=== PATIENT | male | born 1970 | race Caucasian/White ===

== ENCOUNTER → 2023-03-21 14:32 | Outpatient (BNVA) | payer BC, SELFPAY | PROVIDERS: Referring Provider Family Medicine; Visit Provider Internal Medicine | DX: M25.50 Pain in unspecified joint (principal); M46.1 Sacroiliitis, not elsewhere classified; R70.0 Elevated erythrocyte sedimentation rate; R25.1 Tremor, unspecified; R19.7 Diarrhea, unspecified; R53.1 Weakness; L40.9 Psoriasis, unspecified; M25.572 Pain in left ankle and joints of left foot; M25.571 Pain in right ankle and joints of right foot | CPT/HCPCS: 36415; 72202; 73120; 73620; 80053; 81003; 82550; 82607; 82728; 83516; 83540; 84100; 84403; 84443; 85025; 85651; 86140; 86160; 86162; 86200; 86235; 86255; 86376; 86431; 86618; 86666; 86704; 86757; 86803; 87340 ==

== ENCOUNTER → 2024-09-19 11:44 | Outpatient (BNVA) | payer BC, SELFPAY | PROVIDERS: PCP Nurse Practitioner Family; Visit Provider Psychiatry & Neurology Neurology | DX: M47.812 Spondylosis without myelopathy or radiculopathy, cervical region (principal); R25.1 Tremor, unspecified; M79.10 Myalgia, unspecified site; M62.81 Muscle weakness (generalized); E11.9 Type 2 diabetes mellitus without complications; M79.601 Pain in right arm; M79.602 Pain in left arm; M79.604 Pain in right leg; M79.605 Pain in left leg; M54.2 Cervicalgia; R53.1 Weakness | CPT/HCPCS: 36415; 82085; 82306; 82310; 82550; 82607; 83520; 83735; 83921; 84155; 84165; 86334 ==

== ENCOUNTER 2024-10-15 09:05 | Outpatient (CLI) | payer BC, SELFPAY ==
--- NOTE | 2024-10-15 09:30 | MR_ITS ---
WS: [id number] MRI CERVICAL SPINE with and without contrast HISTORY: Bilateral upper extremity pain, no injury. COMPARISON: None available. Technique: Multiplanar, multisequence noncontrast imaging of the cervical spine. Post contrast MultiHance 20 mL. Straightening of the normal cervical lordosis. Mild disc space narrowing and desiccation. Signal within the cervical cord is normal. Visualized posterior fossa is unremarkable. Craniocervical junction, C1 and C2 relationship, odontoid process and soft tissues are normal. C2-C3: Normal. C3-C4: Normal. C4-C5: Minimal osteophytic ridging. Mild encroachment upon the ventral CSF but no high-grade stenosis. Mild facet arthritis. C5-C6: Diffuse annular disc bulging and mild osteophytic ridging. Effacement of the ventral CSF. Moderate to severe central and bilateral foraminal stenosis. Foraminal stenosis due to disc osteophyte disease and does appear to be slightly greater on the RIGHT. C6-C7: Mild annular disc bulging mild facet arthritis. Very minimal central canal stenosis and LEFT foraminal stenosis. C7-T1: Diffuse annular disc bulging with a central disc protrusion. Mild osteophytic ridging. Mild central and LEFT foraminal stenosis. Mild facet arthritis. Paraspinal soft tissue are normal. No discitis or osteomyelitis. No facet joint enhancement. No enhancing masses. MR/MR cervical spine wo/w [id number] IMPRESSION: 1. No signal abnormality within the cord. 2. 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 3. C6-7: Mild central and LEFT foraminal stenosis. 4. C7-T1: Mild central and LEFT foraminal stenosis. 5. No discitis or osteomyelitis. 6. No enhancement in the cervical cord. No myelomalacia.
[2024-10-15] MEDS: gadobenate dimeglumine 20 mL vial IV (10:23)
== END 2024-10-15 09:06 | disposition home or self-care (01) ==
LOC: RAD 09:06
PROVIDERS: Visit Provider Psychiatry & Neurology Neurology
DX: M47.812 Spondylosis without myelopathy or radiculopathy, cervical region (principal); M48.02 Spinal stenosis, cervical region; M25.78 Osteophyte, vertebrae; M50.323 Other cervical disc degeneration at C6-C7 level; M48.03 Spinal stenosis, cervicothoracic region; M50.321 Other cervical disc degeneration at C4-C5 level; M47.892 Other spondylosis, cervical region; M50.322 Other cervical disc degeneration at C5-C6 level; M50.33 Other cervical disc degeneration, cervicothoracic region; M50.23 Other cervical disc displacement, cervicothoracic region; M47.893 Other spondylosis, cervicothoracic region
CPT/HCPCS: 72156

== ENCOUNTER → 2024-11-12 09:06 | Outpatient (BNVA) | payer BC, SELFPAY | PROVIDERS: Visit Provider Student in an Organized Health Care Education/Training Program | DX: G56.03 Carpal tunnel syndrome, bilateral upper limbs (principal) | CPT/HCPCS: 73110 ==

== ENCOUNTER 2025-04-04 08:27 | Day surgery (SDC) | payer BC, SELFPAY ==
[2025-04-04] VITALS (8 sets, daily range): BP systolic 109–123; BP diastolic 77–91; PULSE 71–88; RESP 10–17; TEMP 36.3–36.7; O2SAT 93–98; BMI 32.6
[2025-04-04] MEDS: acetaminophen 1,000 MG/100 ML PIGGYBACK 400 MG IV (09:56)
--- NOTE | 2025-04-04 10:05 | W.PM.OPSFHP ---
Same Day Surgery H&P Indication for Procedure/HPI DATE OF PROCEDURE: April 04, 2025 CHIEF COMPLAINT/INDICATIONFOR SURGICAL PROCEDURE: Left carpal tunnel syndrome PREOP DIAGNOSIS: Left carpal tunnel syndrome PLANNED PROCEDURE: Operation Date: 04/04/25 11:00 Proposed Procedures p LEFT Carpal Tunnel Release(Left) - Ino Restrepo, DO Medications/Allergies* Home Medications ?Medication ?Instructions ?Recorded ?Confirmed ?Type levothyroxine 112 mcg tablet 112 mcg PO DAILY 01/21/22 04/04/25 History (Synthroid) pantoprazole 40 mg tablet,delayed 40 mg PO DAILY 01/21/22 04/04/25 History release empagliflozin 10 mg tablet 10 mg PO DAILY 09/19/24 04/04/25 History (Jardiance) lisinopril 40 mg tablet 40 mg PO DAILY 09/19/24 04/04/25 History lovastatin 20 mg tablet 20 mg PO DAILY 09/19/24 04/03/25 History propranolol 20 mg tablet 20 mg PO BID 09/19/24 04/04/25 History sucralfate 1 gram tablet (Carafate) 1 g PO BID 09/19/24 04/04/25 History upadacitinib 15 mg tablet,extended 15 mg PO DAILY 09/19/24 04/04/25 History release 24 hr (Rinvoq) Allergies/Adverse Reactions Allergy/AdvReac Type Severity Reaction Status Date / Time meloxicam Allergy ALGY-Hives Verified 04/04/25 09:35 Pertinent History/Comorbid Conditions* Social History Smoking and tobacco/nicotine status: current every day tobacco/nicotine user Pertinent Exam Findings alert, oriented x 3, operative site marked and procedure specific exam findings Examination today positive Tinel's over the left carpal tunnel with median nerve paresthesias. Please refer to detailed orthopedic examination on 11/12/2024 listed below: Bilateral upper extremity Exam: -Normal C-spine ROM, No pain. -Negative Spurling's -Negative Tinel's @ shoulder, Normal ROM -Negative Tinel's @ elbow, Normal ROM -Positive median compression test bilateral wrists over the carpal tunnel -Positive Tinel's, over the carpal tunnel -Positive Phalen's -Thenar weakness - No appreciable thenar atrophy noted. -No Intrinsic atrophy or weakness noted bilaterally. Recommendations Risks and benefits of procedure reviewed and Patient/family agree to proceed Surgery/Procedure today Other Plans: Plan to proceed to the OR today for left carpal tunnel release. Patient understands Anzemet's procedure the risk benefits complication alternatives surgical nonsurgical treatment options. Understanding risk of surgery patient like to proceed with surgical intervention for left carpal tunnel release all questions answered at this time. Coding Level of Care Code Acute Code for Chg Fwd
[2025-04-04 10:32] LABS: Anion Gap 16.0 (5-19); Blood Urea Nitrogen 18 mg/dL (6-20); Calcium 8.8 mg/dL (8.5-10.5); Carbon Dioxide 26 mmol/L (22-29); Chloride 98 mmol/L (98-107); Creatinine Clr Calc Pharmacy 120.9070; Glucose 89 mg/dL (65-115); Osmolality Calculated 283 mOsm/kg (285-295); Potassium 4.0 mmol/L (3.5-5.1); Sodium 136 mmol/L (136-145)
--- NOTE | 2025-04-04 10:47 | ANES.PREANE2 ---
Pre-Anesthetic Assessment Height/Weight: Height 5 ft 8 in Weight 215 lb Temp Pulse Resp BP Pulse Ox O2 Del Method 97.9 F 88 17 114/91 98 Room Air 04/04/25 09:45 04/04/25 09:45 04/04/25 09:45 04/04/25 09:45 04/04/25 09:45 04/04/25 09:45 Preop Diagnosis: Left carpal tunnel syndrome Operation Date: 04/04/25 11:00 Proposed Procedures p LEFT Carpal Tunnel Release(Left) - Ino Restrepo, DO Was Beta Alicja taken within 24 hours: N/A Was Clonidine taken within 24 hours: N/A Last intake: Intake Last Liquid Date 04/03/25 Last Liquid Time 19:00 Last Solid Date 04/03/25 Last Solid Time 19:00 Social No alcohol and No tobacco Exam alert, oriented x 3, clear to auscultation bilaterally and regular rate & rhythm Airway Submandibular: within normal limits Cervical ROM: within normal limits Mallampati: Class III Comments: Comments: Very poor dentition, denies any loose teeth Anesthetic Plan ASA status: 3 Anesthesia: MAC Other: No prior issues with anesthesia NPO since yesterday evening History of hypertension, on lisinopril and propranolol GERD, controlled with Protonix Hypothyroidism on Synthroid Plan for MAC anesthesia with local via surgeon Medications/Allergies Home Medications ?Medication ?Instructions ?Recorded ?Confirmed ?Last Taken ?Type levothyroxine 112 mcg tablet 112 mcg PO DAILY 01/21/22 04/04/25 04/04/25 History (Synthroid) pantoprazole 40 mg tablet,delayed 40 mg PO DAILY 01/21/22 04/04/25 04/04/25 History release empagliflozin 10 mg tablet 10 mg PO DAILY 09/19/24 04/04/25 04/03/25 History (Jardiance) gabapentin 300 mg capsule 600 mg (2 x 300 mg) PO TID 30 days 09/19/24 04/04/25 04/03/25 Rx #180 caps lisinopril 40 mg tablet 40 mg PO DAILY 09/19/24 04/04/25 04/03/25 History lovastatin 20 mg tablet 20 mg PO DAILY 09/19/24 04/03/25 04/03/25 History propranolol 20 mg tablet 20 mg PO BID 09/19/24 04/04/25 04/04/25 History sucralfate 1 gram tablet (Carafate) 1 g PO BID 09/19/24 04/04/25 04/03/25 History upadacitinib 15 mg tablet,extended 15 mg PO DAILY 09/19/24 04/04/25 04/03/25 History release 24 hr (Rinvoq) cholecalciferol (vitamin D3) 1,250 50,000 unit PO .Q7 #12 caps 09/20/24 04/04/25 03/20/25 Rx mcg (50,000 unit) capsule Allergies Allergy/AdvReac Type Severity Reaction Status Date / Time meloxicam Allergy ALGY-Hives Verified 04/04/25 09:35 Current Medications Generic Name Dose Route Start Last Admin Trade Name Danialq PRN Reason Stop Dose Admin Sodium Chloride 1,000 mls @ 30 mls/hr 04/04/25 09:30 04/04/25 09:56 Sodium Chloride 0.9% IV 04/05/25 09:29 30 mls/hr .Q24H VIOLETTE Administration PFSH Anesthesia Social History Smoking and tobacco/nicotine status: current every day tobacco/nicotine user Data Anesthesia 04/04/25 09:53 BMP 04/04/25 09:53 Sodium 136 Potassium 4.0 Chloride 98 Carbon Dioxide 26 BUN 18 Creatinine 0.8 Glucose 89 Calcium 8.8
[2025-04-04] MEDS: midazolam 1 mg/mL INJ 2 mL 2 MG IVP (11:21)
[2025-04-04] MEDS: ceFAZolin 2,000 MG in sodium chloride 0.9% (plus) 50 ML 100 MG IV (11:45)
[2025-04-04] MEDS: ROPivacaine 0.5% SDV 30 mL 150 MG INJECTION (12:00)
[2025-04-04] MEDS: lidocaine-epi 1% 20 mL INJ INJECTION (12:00)
--- NOTE | 2025-04-04 12:06 | W.PM.BPON ---
Date of Procedure: 04/04/2025 Surgeon: Ino Restrepo DO Commissioning Engineer(s): None Procedure(s) performed: Left carpal tunnel release Findings of the procedure(s): Underwent procedure as planned without issues or complications taken recovery in stable condition Estimated blood loss: 2 mL Specimen(s) removed: None Post-operative diagnosis: Left carpal tunnel syndrome
--- NOTE | 2025-04-04 12:07 | P.OP_ITS ---
Operative Report Date of procedure: April 04, 2025 Surgeon: Ino Restrepo DO Procedure: Preop Diagnosis: Left Carpal Tunnel Syndrome Post-op diagnosis: Same Procedure done: 1. Left carpal tunnel release Surgeon: Ino Restrepo DO Anesthesia: MAC (Local) Estimated blood loss: 2 mL Tourniquet time 4 minutes IV fluids: See anesthesia record Complications: None Findings: See operative report narrative Condition: stable Disposition: same day Brief History: Patient is a pleasant 55 year-old male with left carpal tunnel syndrome. Patient has been worked up in the outpatient setting findings and physical examination consistent with this. Patient nerve conduction studies consistent with carpal tunnel syndrome. We detailed out patient's risk benefits complication alternatives with surgical and nonsurgical treatment options. Through shared decision making, patient agrees to proceed with surgical intervention of the left carpal tunnel release . Patient understands and agrees with current plan. All questions answered. Patient elects to proceed with surgical intervention with carpal tunnel release. Procedure: Patient seen and evaluated in the preoperative holding area. Consent was reviewed and signed with patient. Correct extremity was marked. Patient was seen evaluated by the anesthesia department once cleared for surgery was brought back to the operative suite. Patient was kept on [facility] in supine position all bony prominences were well-padded patient properly secured to the bed. Left upper extremity was then placed onto an armboard. A nonsterile tourniquet was applied to the left upper arm. Patient underwent anesthesia per the anesthesia department. Patient's left upper extremity was then prepped and draped in standard orthopedic fashion. Final timeout performed. Patient receiv ed appropriate preoperative antibiotics. Under sterile aseptic technique patient received local anesthesia over the preplanned carpal tunnel incision site. Esmarch was used to exsanguinate the left upper extremity and tourniquet was insufflated to 250 mmHg. A standard mini open left carpal tunnel incision was made. Starting distally at Bright's cardinal line in line with the fourth ray extending proximally distal to the wrist crease centered over the carpal tunnel. Sharp scalpel incision was made through skin and subcutaneous tissue. Self-retaining retractor was placed and the palmar fascia was identified. This was then split longitudinally and direct visualization of the transverse carpal ligament was then made. I then utilizing scalpel feathered through the transverse carpal ligament until I entered the floor of the transverse carpal tunnel ligament into the carpal tunnel. Next I switched to dissection scissors and completed my release of the transverse carpal ligament distally with care to protect the recurrent motor branch. I completely released into the palmar fat and until no entrapment was noted distally. Care was made to protect the superficial palmar arch during my distal dissection. Next, nasal speculum placed proximally for retraction of soft tissue on top of the Transverse carpal ligament. Next the contents of the carpal tunnel where protected and and subsequently utilizing dissection scissors under loupe magnification completely released the transverse carpal ligament proximally into the antebrachial fascia. Care was made to protect the palmar cutaneous branch by keeping my scissors curved ulnarly. Once completely released, I then placed my [place] and had appropriate decompression of the carpal tunnel proximally as well as distally. I then inspected the contents of the carpal tunnel which showed an hourglass shape of the median nerve showing its compression. No masses were noted. Tendons appeared healthy. Wound was then thoroughly irri gated. Tourniquet deflated. Hemostasis satisfactory with bipolar electrocautery. I then closed the incision with interrupted nylon stitches. Xeroform 4 x 4's and a bulky soft dressing was applied to the left upper extremity. Patient was then awakened from anesthesia and taken to PACU in stable condition. Patient tolerated procedure without complications. Disposition: Patient taken to PACU in stable condition recovering well. Dressing clean dry and intact. Patient will receive appropriate discharge instructions as well as pain medication postoperatively. Patient to follow-up with me in the office in 2 weeks. They understand they may be weightbearing as tolerated to the left hand. Patient should keep incision clean dry and intact. Patient understands if any questions or concerns may contact the office.
--- NOTE | 2025-04-04 13:04 | ANE.PACU2 ---
Inpatient post-anesthesia follow up: Airway intact: Yes Vital signs: Temperature 97.4 F Pulse Rate 76 Respiratory Rate 17 Blood Pressure 121/80 Pulse Oximetry 96 Oxygen Delivery Me thod Room Air Oxygen Flow Rate Fraction of Inspir ed Oxygen Hydration adequate: Yes Nausea and vomiting: No Pain level: 1 Mental status: Baseline
== END 2025-04-04 13:04 | disposition home or self-care (01) ==
PROVIDERS: Student in an Organized Health Care Education/Training Program; Visit Provider Student in an Organized Health Care Education/Training Program
PROC: (CPT 64721; principal; 2025-04-04 10:50)
DX: G56.02 Carpal tunnel syndrome, left upper limb (principal); I10 Essential (primary) hypertension; K21.9 Gastro-esophageal reflux disease without esophagitis; E03.9 Hypothyroidism, unspecified; F17.200 Nicotine dependence, unspecified, uncomplicated
CPT/HCPCS: 64721; 36415; 36416; 80048; 82962; J0131; J0690; J2250; J2704; J2795; J3010; J7030; J9999